=== PATIENT | female | born 1985 | race Caucasian/White ===

== ENCOUNTER 2017-11-04 16:23 | Emergency (ER) | payer SELFPAY ==
[2017-11-04 16:42] VITALS: RESP 16; BMI 21.6
[2017-11-04] MEDS ORDERED: Sodium Chloride 0.9% 1,000 ML IV STA (17:03)
[2017-11-04] MEDS ORDERED: Iohexol 240 (50 ml) PO ONE (17:04)
--- NOTE | 2017-11-04 17:07 | ED PDOC ---
HPI: Abdomen Time Seen by Provider: 11/04/17 16:43 Chief Complaint (Nursing): Abdominal Pain Chief Complaint (Provider): Abd pain History Per: Patient History/Exam Limitations: no limitations Onset/Duration Of Symptoms: Days (today) Additional History Per: Patient Additional Complaint(s): Pulse accidentally written in respirations. Pt. here with abd pain RLQ. Constant. No back pain, weakness, headaches. Has dysuria. Frequent urination. No chest pain, dyspnea, vaginal bleeding. No weakness. No fever, new food. Past Medical History Reviewed: Nursing Documentation, Vital Signs Vital Signs: Last Vital Signs Temp 98.1 F 11/04/17 16:41 Pulse 84 11/04/17 16:41 Resp 16 11/04/17 16:41 BP 131/81 11/04/17 16:41 Pulse Ox 100 11/04/17 17:08 - Medical History PMH: No Chronic Diseases - Surgical History Surgical History: No Surg Hx - Family History Family History: States: Unknown Family Hx - Social History Alcohol: None Drugs: Denies - Immunization History Hx Tetanus Toxoid Vaccination: Yes Hx Influenza Vaccination: Yes Hx Pneumococcal Vaccination: No - Allergies Allergies/Adverse Reactions: Allergies Allergy/AdvReac Type Severity Reaction Status Date / Time No Known Allergies Allergy Verified 02/07/15 16:37 Review of Systems ROS Statement: Except As Marked, All Systems Reviewed And Found Negative Gastrointestinal: Positive for: Nausea, Abdominal Pain Genitourinary Female: Positive for: Dysuria, Frequency Physical Exam - Reviewed Nursing Documentation Reviewed: Yes Vital Signs Reviewed: Yes - Physical Exam Appears: Positive for: Non-toxic, No Acute Distress Head Exam: Positive for: ATRAUMATIC, NORMAL INSPECTION, NORMOCEPHALIC Skin: Positive for: Normal Color, Warm, DRY Eye Exam: Positive for: EOMI, Normal appearance, PERRL ENT: Positive for: Normal ENT Inspection Neck: Positive for: Normal, Painless ROM Cardiovascular/Chest: Positive for: Regular Rate, Rhythm Respiratory: Positive for: CNT, Normal Breath Sounds Gastrointestinal/Abdominal: Positive for: Soft, Tenderness (RLQ and periumbilical) Back: Positive for: R CVA Tenderness. Negative for: L CVA Tenderness Extremity: Positive for: Normal ROM. Negative for: Tenderness Neurologic/Psych: Positive for: Alert, Oriented - Laboratory Results Result Diagrams: 11/04/17 17:29 11/04/17 17:29 Interpretation Of Abn Labs: urine wbc - ECG O2 Sat by Pulse Oximetry: 100 Pulse Ox Interpretation: Normal - Progress ED Course And Treament: 1851: Dr. Deutsch to fu on ct. Stable. Rocephin given for uti. Disposition - Clinical Impression Clinical Impression: Abdominal pain, UTI (urinary tract infection) - Patient ED Disposition Is Patient to be Admitted: No Counseled Patient/Family Regarding: Studies Performed, Diagnosis - Disposition Disposition Time: 18:15 Condition: FAIR Patient Signed Over To: Eric Deutsch
[2017-11-04] MEDS ORDERED: Iohexol 240 (50 ml) ONE (17:42)
[2017-11-04 17:47] LABS: SQUAMOUS EPITHIAL 1 /hpf (0-5); URINE BACTERIA RARE (<OCC); URINE BILIRUBIN NEGATIVE (NEGATIVE); URINE BLOOD MODERATE (NEGATIVE); URINE CLARITY SLIGHTY-CLOUDY (Clear); URINE COLOR YELLOW (YELLOW); URINE GLUCOSE (UA) NEG (Normal); URINE LEUKOCYTE ESTERASE MOD Leu/uL (Negative); URINE PROTEIN 30 mg/dL (NEGATIVE); URINE UROBILINOGEN 0.2-1.0 mg/dL (0.2-1.0)
[2017-11-04 17:50] LABS: ALB/GLOB RATIO 1.3 (1.0-2.1); ALBUMIN 4.1 g/dL (3.5-5.0); ALT/SGPT 23 U/L (9-52); AST/SGOT 23 U/L (14-36); BASO % 0.2 % (0.0-2.0); BLOOD UREA NITROGEN 10 mg/dl (7-17); EOS % 0.2 % (0.0-4.0); GFR NON-AFRICAN AMERICAN > 60; HEMOGLOBIN 12.7 g/dL (12.0-16.0); LYMPH # 1.3 K/uL (1.0-4.3); LYMPH % 13.7 % (20.0-40.0); MEAN CELL VOLUME 95.5 fl (81.0-99.0); MEAN CORPUSCULAR HEMOGLOBIN 32.6 pg (27.0-31.0); MEAN CORPUSCULAR HGB CONC 34.1 g/dL (33.0-37.0); MEAN PLATELET VOLUME 9.7 fl (7.2-11.7); MONO # 0.5 K/uL (0.0-0.8); MONO % 5.5 % (0.0-10.0); NEUT # 7.8 K/uL (1.8-7.0); NEUT % 80.4 % (50.0-75.0); RBC 3.89 Mil/uL (3.80-5.20); RED CELL DISTRIBUTION WIDTH 12.9 % (11.5-14.5); WHITE BLOOD COUNT 9.7 K/uL (4.8-10.8)
[2017-11-04] MEDS ORDERED: cefTRIAXone (Rocephin) 1 gm Inj IV STA (18:51)
[2017-11-04] MEDS ORDERED: Iohexol 300 100 ML IJ ONE (19:40)
[2017-11-04] MEDS ORDERED: Sodium Chloride 0.9% 50 ML IV ONE (19:40)
--- NOTE | 2017-11-04 20:53 | ED PDOC ---
"- Laboratory Results Result Diagrams: 11/04/17 17:29 11/04/17 17:29 - ECG O2 Sat by Pulse Oximetry: 100 Pulse Ox Interpretation: Normal Medical Decision Making Medical Decision MakinPM Endorsed to me by Dr. Boateng pending CT and re-eval. 845PM EXAM: CT Abdomen and Pelvis With Intravenous Contrast CLINICAL HISTORY: 32 years old, female; Pain; Abdominal pain; Localized; Right lower quadrant (rlq); Additional info: Abd pain TECHNIQUE: Axial computed tomography images of the abdomen and pelvis with intravenous contrast. All CT scans at this facility use at least one of these dose optimization techniques: automated exposure control; mA and/or kV adjustment per patient size (includes targeted exams where dose is matched to clinical indication); or iterative reconstruction. Coronal and sagittal reformatted images were created and reviewed. CONTRAST: 90 mL of [id number] was administered intravenously. COMPARISON: No relevant prior studies available. FINDINGS: Lung bases: Unremarkable. No mass. No consolidation. ABDOMEN: Liver: Cyst in the dome of the right hepatic lobe. Gallbladder and bile ducts: Unremarkable. No calcified stones. No ductal dilation. Pancreas: Unremarkable. No mass. No ductal dilation. Spleen: Unremarkable. No splenomegaly. Adrenals: Unremarkable. No mass. Kidneys and ureters: Unremarkable. No solid mass. No hydronephrosis. Stomach and bowel: Unremarkable. No obstruction. No mucosal thickening. PELVIS: Appendix: Normal appendix. Bladder: Unremarkable. No mass. Reproductive: Recently ruptured left ovarian cyst or follicle. ABDOMEN and PELVIS: Intraperitoneal space: Unremarkable. No free air. No significant fluid collection. Bones/joints: No acute fracture. No dislocation. Soft tissues: Unremarkable. Vasculature: Unremarkable. No abdominal aortic aneurysm. Lymph nodes: Unremarkable. No enlarged lymph nodes. IMPRESSION: LIZY GALARZA | Preliminary Radiology Report ESCAPEMENT MATCHER (QA) DISCREPANCY? If there is a discrepancy between the preliminary and final interpretation, please notify [facility] via [email or web address]. If you do not have access to our QA portal, call our QA team at [phone] CONFIDENTIALITY STATEMENT This report is intended only for the use of the referring physician, and only in accordance with law, If you received this in error, call [phone] Page 2 of 2 1. Normal appendix. 2. Recently ruptured left ovarian cyst or follicle. Thank you for allowing us to participate in the care of your patient. Dictated and Authenticated by: Vernon Dennis MD 11/04/2017 8:28 PM Eastern Time ([place] & [place]) Patient is feeling much better, tolerating PO, appearing very well. Normal vitals. Explained results to patient and advised her to followup with her DIANETICIST Dr. Patiño or PMD next week. Return precautions given. Disposition - Clinical Impression Clinical Impression: UTI (urinary tract infection), Ruptured ovarian cyst - POA Present On Arrival: None - Disposition Referrals: Terence Patiño DO [Staff Provider] - Disposition: Routine/Home Disposition Time: 20:53 Condition: IMPROVED Prescriptions: Ibuprofen [Motrin Tab] 600 mg PO Q6 #30 tab Nitrofurantoin Macrocrystals [Macrobid] 100 mg PO BID 5 Days cap Instructions: Urinary Tract Infections in Adults, Ovarian Cysts"
[2017-11-04 21:26] VITALS: BP 127/68; PULSE 82; TEMP 98; O2SAT 99
--- NOTE | 2017-11-05 12:37 | CT ---
Date of service: 11/04/2017 PROCEDURE: CT Abdomen and Pelvis with contrast HISTORY: abd pain COMPARISON: 2008 TECHNIQUE: Contrast dose: 95 milliliters Radiation dose: Total exam DLP = 342 mGy-cm. This CT exam was performed using one or more of the following dose reduction techniques: Automated exposure control, adjustment of the mA and/or kV according to patient size, and/or use of iterative reconstruction technique. FINDINGS: LOWER THORAX: Unremarkable. LIVER: Mild fatty infiltration of the liver. No focal liver mass or intrahepatic ductal dilatation. Small incidental subcentimeter right liver lobe cyst is noted. GALLBLADDER AND BILE DUCTS: Unremarkable. PANCREAS: Unremarkable. No gross lesion or ductal dilatation. SPLEEN: Unremarkable. ADRENALS: Unremarkable. No mass. KIDNEYS AND URETERS: Unremarkable. No hydronephrosis. No solid mass. VASCULATURE: Unremarkable. No aortic aneurysm. BOWEL: Unremarkable. No obstruction. No gross mural thickening. APPENDIX: Normal appendix. PERITONEUM: Small amount of fluid is seen in the left side of the pelvis adjacent to a probable involuting or ruptured left ovarian follicular cyst. LYMPH NODES: Unremarkable. No enlarged lymph nodes. BLADDER: Unremarkable. REPRODUCTIVE: There is a small left ovarian probable involuting or recently ruptured cyst. This measures 2.1 by 1.9 x 1.7 centimeters. There is a small amount of adjacent left adnexal and cul-de-sac fluid noted. Right adnexa is unremarkable. Uterus is normal in size. BONES: No acute fracture. OTHER FINDINGS: None. IMPRESSION: Small involuting or recently ruptured left ovarian follicular cyst with a small amount of fluid in the left lower pelvis and cul-de-sac. No CT scan evidence of appendicitis or other acute inflammatory process. This agrees with preliminary report.
== END 2017-11-04 21:25 | disposition home or self-care (01) ==
LOC: H.ER 16:23
DX: N39.0 Urinary tract infection, site not specified (principal); N83.202 Unspecified ovarian cyst, left side
CPT/HCPCS: 74177; 80053; 81003; 81025; 85025; 87040; 87086; 96361; 96374; 96375; 99283; J1885; J2405; J7030; Q9966; Q9967